=== PATIENT | male | born 1960 | race Caucasian/White ===

== ENCOUNTER 2019-08-03 08:47 | Emergency (ER) | payer BC, SELFPAY ==
[2019-08-03 08:51] VITALS: BP 174/99; PULSE 63; RESP 16; TEMP 36.9; O2SAT 98
[2019-08-03 09:35] VITALS: BP 155/97; PULSE 58
[2019-08-03 09:37] VITALS: BP 159/103; PULSE 63
[2019-08-03 09:38] LABS: Basophils Percent Auto 0.8 % (0.2-1.2); Eosinophils Absolute Auto 0.1 K/mm3 (0-0.3); Eosinophils Percent Auto 1.7 % (0-4.4); Hemoglobin 14.9 g/dL (14.0-18.0); Immature Granulocyte Absolute 0.01 K/mm3 (0.00-0.031); Immature Granulocyte Percent A 0.2 % (0-0.5); Lymphocytes Absolute Auto 1.52 K/mm3 (0.9-3.2); Lymphocytes Percent Auto 29.4 % (18.3-44.2); Mean Corpuscular HGB Conc 32.4 g/dl (32-36); Mean Corpuscular Hemoglobin 27.8 pg (26-34); Mean Corpuscular Volume 85.8 fl (80-100); Mean Platelet Volume 9.8 fl (7.4-10.4); Monocytes Absolute Auto 0.5 K/mm3 (0.1-0.6); Monocytes Percent Auto 9.3 % (2.6-8.5); Neutrophils Percent Auto 58.6 % (45.5-73.1); Platelet Count Result 208 k/mm3 (150-375); Red Blood Count 5.36 M/mm3 (4.6-6.20); Red Cell Distribution Width 13.7 % (11.5-14.5); White Blood Count 5.2 K/mm3 (4.5-10.0)
[2019-08-03 09:39] VITALS: BP 157/109; PULSE 72
[2019-08-03 09:49] LABS: Alanine Aminotransferase 31 U/L (4-50); Albumin Level 4.1 g/dL (3.5-5.1); Alkaline Phosphatase 50 U/L (38-126); Aspartate Amino Transferase 34 U/L (17-59); Bilirubin,Total 0.6 mg/dL (0.2-1.3); Blood Urea Nitrogen 14 mg/dL (9-20); Carbon Dioxide 29 mmol/L (22-30); Chloride 102 mmol/L (98-107); Estimated CRCL calculation 79 ml/min; Estimated Glomerular Filt Rate > 60; Glucose 107 mg/dL (75-110); Potassium 4.1 mmol/L (3.4-5.0); Sodium 139 mmol/L (137-145)
--- NOTE | 2019-08-03 10:02 | ED.GENADULT ---
HPI - General Adult General Chief complaint: Dizziness Stated complaint: high blood pressure, light headed Time Seen by Provider: 08/03/19 08:56 Source: patient Mode of arrival: ambulatory Limitations: no limitations History of Present Illness HPI narrative: Patient is a 58-year-old male who presents to emergency department for evaluation of feeling slightly lightheaded and dizzy notes that he did clean out his ear 2 days prior prior to onset of symptoms which seem to come and go. Patient denies any pain. Patient presents per private vehicle has not taken anything for his symptoms patient on arrival resting comfortably in the room noting that he is currently asymptomatic. Related Data Allergies Allergy/AdvReac Type Severity Reaction Status Date / Time NSAIDS (Non-Steroidal Allergy Severe kidney Verified 04/20/19 06:46 Anti-Inflamma donor 2007 Review of Systems Review of Systems: All systems reviewed & are unremarkable except as noted in HPI and below PMFSH Past Medical History Medical History Anxiety Encounter for screening colonoscopy Migraine Family History Family History (Updated 02/26/19 @ 11:22 by DOCTOR UNKNOWN) Grandparent Diabetes mellitus Family history of Alzheimer's disease, Onset Age: 80 Mother Diabetes mellitus, Onset Age: 77 Family history of malignant neoplasm of breast in first degree relative Father Hypertension Social History Social History Smoking status: Never smoker Alcohol intake: current Gender identity (if verbalized by the patient): Male Exam Narrative: Exam Narrative: GENERAL: Well-appearing, well-nourished, and in no acute distress. HEAD: Normocephalic, atraumatic. EYES: PERRLA and EOMI. ENT: Nares clear, no rhinorrhea or epistaxis. Mucous membranes moist. Oropharynx without tonsillar hypertrophy exudate or other lesions. Left TM pearly walker nonbulging right TM unable to visualize secondary to cerumen impaction NECK: Supple. No adenopathy or masses. CHEST: Clear to auscultation. No respiratory distress. No wheezes rales or rhonchi HEART: Regular rate and rhythm. No murmur heard. Normal peripheral pulses. ABDOMEN: Soft, nontender, nondistended EXTREMITIES: Normal range of motion. No edema. SKIN: Warm, dry, no rash. NEURO: No focal deficits. Alert and oriented x3. Cranial nerves II through XII grossly intact. Cerebellar intact. Cardiology PSYCH: Normal mood and affect. Course Consultations Consultation #1: Spoke with primary care regarding the case will follow patient in clinic would like the patient to be started on metoprolol 50 mg daily and to follow in clinic no further recommendations at this time Date: 08/03/19 Vital Signs Vital signs: Vital Signs Temperature 98.5 F 08/03/19 08:51 Pulse Rate 63 08/03/19 08:51 Respiratory Rate 16 08/03/19 08:51 Blood Pressure 174/99 H 08/03/19 08:51 Pulse Oximetry 98 08/03/19 08:51 Temperature 98.5 F 08/03/19 08:51 Pulse Rate 98 08/03/19 11:32 Respiratory Rate 17 08/03/19 11:32 Blood Pressure 153/102 H 08/03/19 11:32 Pulse Oximetry 98 08/03/19 11:32 Medical Decision Making [facility] Narrative Medical decision making narrative: Patient in the room in no distress without high risk changes in the blood work resting comfortably patient's blood pressure at this time is 140/99 otherwise hemodynamically stable in no distress felt appropriate for outpatient reevaluation with primary care follow-up also given reasons to return Vital Signs Vital Signs: Vital Signs Temperature 98.5 F 08/03/19 08:51 Pulse Rate 63 08/03/19 08:51 Respiratory Rate 16 08/03/19 08:51 Blood Pressure 174/99 H 08/03/19 08:51 Pulse Oximetry 98 08/03/19 08:51 Temperature 98.5 F 08/03/19 08:51 Pulse Rate 98 08/03/19 11:32 Respiratory Rate 17 08/03/19 11:32 Blood Pres
[2019-08-03] MEDS: SODIUM CHLORIDE 0.9% IV 1,000 ML 999 ML IV CONT (10:15)
[2019-08-03 10:25] LABS: Add Urine Microscopic? NO; Appearance Urine Clear (Clear); Bilirubin Urine Negative (Negative); Blood Urine Negative (Negative); Color Urine Straw (Yellow); Glucose Urine UA Negative (Negative); Ketones Urine Negative (Negative); Leukocyte Esterase Ur Negative LEU/UL (Negative); Nitrate Urine Negative (Negative); Protein Urine Negative (Negative); Specific Grav Ur 1.008 (1.001-1.035); Urobilinogen Urine Negative mg/dL (<2.0)
--- NOTE | 2019-08-03 11:16 | ECG_ITS ---
Measurements Intervals [place] Rate: 63 P: 21 [place]: 176 QRS: 78 QRSD: 117 T: 38 QT: 424 QTc: 435 Interpretive Statements SINUS RHYTHM INCOMPLETE RIGHT BUNDLE BRANCH BLOCK BASELINE WANDER- I, III BORDERLINE ECG Electronically Signed On 08-03-2019 11:22:42 HADOOP ANALYST by Rojelio Perez D.O.
[2019-08-03 11:32] VITALS: BP 153/102; PULSE 98; RESP 17; O2SAT 98
[2019-08-03 11:55] LABS: Troponin I < 0.012 ng/mL (0.000-0.034)
[2019-08-03 12:36] VITALS: BP 152/98; PULSE 59; RESP 16; O2SAT 98
== END 2019-08-03 12:37 | disposition home or self-care (01) ==
PROVIDERS: Emergency Medicine Emergency Medical Services; Emergency Provider Emergency Medicine; PCP Family Medicine
DX: R42 Dizziness and giddiness (principal); I10 Essential (primary) hypertension
CPT/HCPCS: 36415; 80053; 81003; 84484; 85025; 93005; 96360; 99284; J7030

== ENCOUNTER 2024-06-21 10:22 | Outpatient (CLI) | payer BC, SELFPAY ==
--- NOTE | ~2024-06-21 | US_ITS ---
EXAMINATION: US carotid duplex BI DATE: 06/21/2024 10:58 INDICATION: Carotid artery occlusive disease. Neck tightness. Migraine headache. TECHNIQUE: Grayscale, color Doppler, and pulsed Doppler images of the cervical carotid arteries were obtained. The degree of vessel stenosis is placed in one of the following categories: normal, <50%, 5 0-69%, >=70% but less than near-occlusion, near-occlusion, or total occlusion. Note that percent sten osis relative to normal distal artery lumen diameter is indirectly measured from velocity measurement s as described by Jeremy, et al. Radiology 2003; [id number]. COMPARISON: None. FINDINGS: RIGHT: The right common carotid artery (CCA) peak systolic velocity (PSV) is 106 cm/s. The right internal ca rotid artery (ICA) PSV is 74 cm/s. The right ICA end-diastolic velocity (EDV) is 17 cm/s. The right I CA/CCA PSV ratio is 0.7. Grayscale and color Doppler images yield an estimate of <50% diameter reduct ion from plaque in the ICA. There is antegrade flow in the right vertebral artery. LEFT: The left CCA PSV is 106 cm/s. The left ICA PSV is 62 cm/s. The left ICA EDV is 21 cm/s. The left ICA/ CCA PSV ratio is 0.6. Grayscale and color Doppler images yield an estimate of <50% diameter reduction from plaque in the ICA. There is antegrade flow in the left vertebral artery. IMPRESSION: 1. <50% stenosis in the right internal carotid artery. 2. <50% stenosis in the left internal carotid artery. Reviewed, dictated and finalized at location A. [facility]
== END 2024-06-21 10:23 | disposition home or self-care (01) ==
PROVIDERS: PCP Chiropractor; Visit Provider Chiropractor
DX: I65.23 Occlusion and stenosis of bilateral carotid arteries (principal)
CPT/HCPCS: 93880